=== PATIENT | male | born 1945 | race Caucasian/White ===

== ENCOUNTER 2018-04-01 09:31 | Emergency (ER) | payer MEDICARE ==
[~2018-04-01] VITALS: Ht 172.7 cm; Wt 97.5 kg
--- NOTE | ~2018-04-01 | EKG ---
[place], [place] ELECTROCARDIOGRAM REPORT NAME: ANNETTA JIMENEZ UNIT #: [id number] ROOM: DOCTOR: EPIPHANY DRAFT REPORT BIRTHDATE: [birth year] [facility] Test Date: 2018-04-01 Test Time: 09:36:22 Pat Name: ANNETTA JIMENEZ Department: Room: Gender: M Manager [employer]: KALE : 1945 Requested By: DAILY ATWOOD Order Number: [id number] Reading MD: Gato Fernandez MD Measurements Intervals [place] Rate: 69 P: 46 MS: 184 QRS: -28 QRSD: 146 T: 115 QT: 411 QTc: 441 Interpretive Statements Sinus rhythm Left bundle branch block Baseline wander in lead(s) V1 Compared to ECG 03/15/2018 10:10:59 No significant changes Electronically Signed On 04-01-2018 12:29:54 PST by Gato Fernandez MD CM:EKGRPT:ELECTROCARDIOGRAM REPORT [id number] DAILY ATWOOD EPIPHANY DRAFT REPORT DAILY ATWOOD
[~2018-04-01 09:31] MED LIST: AMLODIPINE BESY10 MG PO; ASPIRIN CHEWABL81 MG PO; CETIRIZINE10 MG PO; CLONAZEPAM1 MG PO; LOSARTAN POTASS50 M1 PO; MIRTAZAPINE30 M1 PO
[2018-04-01 10:07] LABS: BASO # 0.1 10*3/uL (0.0-0.1); BASO % 0.8 % (0.0-1.0); EOS # 0.1 10*3/uL (0.0-0.4); EOS % 1.7 % (1.0-4.0); HEMATOCRIT 44.2 % (42.0-52.0); HEMOGLOBIN 15.3 g/dl (14.0-18.0); LYMPH # 0.6 10*3/uL (1.3-4.4); LYMPH % 9.8 % (27.0-41.0); MEAN CELL VOLUME 93.6 fl (80.0-94.0); MEAN CORPUSCULAR HGB 32.4 pg (27.0-31.0); MEAN CORPUSCULAR HGB CONC 34.6 g/dl (33.0-37.0); MEAN PLATELET VOLUME 9.1 fl (9.6-12.3); MONO # 0.9 10*3/uL (0.1-1.0); NEUT # 4.3 10*3/uL (2.3-7.9); NEUT % 72.4 % (47.0-73.0); PLATELET COUNT AUTOMATED 154 10*3/uL (130-400); RED BLOOD COUNT 4.72 10*6/uL (4.50-5.90); RED CELL DISTRI WIDTH 12.7 % (0-14.5); WHITE BLOOD COUNT 5.9 10*3/uL (4.8-10.8)
[2018-04-01 10:23] LABS: ALBUMIN 3.4 gm/dl (3.1-4.5); ALKALINE PHOSPHATASE 76 U/L (45-117); BUN 16 mg/dl (7-24); CHLORIDE 108 mmol/L (98-107); CREATININE 1.28 mg/dL (0.70-1.30); POTASSIUM 4.3 mmol/L (3.5-5.1); SGOT/AST 28 IU/L (3-35); SGPT/ALT 43 U/L (12-78); SODIUM 143 mmol/L (136-145); TOTAL PROTEIN 7.2 gm/dL (6.4-8.2)
[2018-04-01] MEDS ORDERED: PREDNISONE10 MG PO (10:46)
[2018-04-01] MEDS ORDERED: PROAIR HFA8.5 GM INH (10:46)
[2018-04-01] MEDS ORDERED: CLARITIN10 MG PO (10:46)
[2018-04-01] MEDS ORDERED: VIBRAMYCIN100 MG PO (10:46)
== END 2018-04-01 11:24 | disposition home or self-care (01) ==
LOC: ED 09:31
PROVIDERS: Nurse Practitioner Family
DX: J20.9 Acute bronchitis, unspecified (principal); R03.0 Elevated blood-pressure reading, without diagnosis of hypertension; Z79.899 Other long term (current) drug therapy; Z79.82 Long term (current) use of aspirin; Z86.73 Personal history of transient ischemic attack (TIA), and cerebral infarction without residual deficits